=== PATIENT | male | born 1965 | race Two or more races ===

== ENCOUNTER 2024-08-30 08:02 | Emergency (ER) | payer OTHER ==
[~2024-08-30] VITALS: Ht 177.8 cm; Wt 70.8 kg
[2024-08-30] MEDS ORDERED: FENOFIBRATE150 MG PO (08:20)
[2024-08-30] MEDS ORDERED: CRESTOR40 MG PO (08:21)
[2024-08-30] MEDS ORDERED: KETOROLAC TROMETHAMINE 60 MG VIAL IM ONE ×2 (08:45→08:52)
[2024-08-30] MEDS ORDERED: ORPHENADRINE CITRATE 100 MG TABLET PO ONE (08:45)
[2024-08-30] MEDS ORDERED: DEXAMETHASONE SODIUM PHOSPHATE 4 MG/ML VIAL IM ONE (08:45)
[2024-08-30] MEDS ORDERED: DEXAMETHASONE SODIUM PHOSPHATE 4 MG/ML VIAL ONE (08:52)
[2024-08-30 09:36] LABS: HEMATOCRIT 41.5 % (39.0-48.0); HEMOGLOBIN 14.1 g/dL (13-16.00); MEAN CELL VOLUME 89.9 fL (80.0-100.00); MEAN CORPUSCULAR HEMOGLOBIN 30.5 pg (27.00-32.0); PLATELET COUNT 242 K/uL (150-450); RED BLOOD COUNT 4.62 M/uL (4.00-6.00); RED CELL DISTRIBUTION WIDTH 13.4 % (11.5-14.5)
[2024-08-30 11:33] LABS: PH,URINE 6.5 (5.0-8.0); URINE APPEARANCE Clear; URINE BILIRRUBIN Negative (NEGATIVE); URINE BLOOD Negative; URINE COLOR Yellow; URINE GLUCOSE Negative (NEGATIVE); URINE KETONE Negative (NEGATIVE); URINE LEUKOCYTE Negative; URINE NITRATE Negative; URINE PROTEIN Negative (NEGATIVE); URINE UROBILINOGEN 0.2 E.U./dl
[2024-08-30 11:37] LABS: URINE BACTERIA 9.7 uL (0.0-1933); URINE RBC 3.3 uL (0.0-20.8); URINE WBC 4.1 uL (0.0-23.2)
[2024-08-30 11:53] LABS: URINE CAST 0.14 uL (0.0-1.40)
[2024-08-30] MEDS ORDERED: DICLOFENAC SODI75 MG PO (12:11)
[2024-08-30] MEDS ORDERED: BACLOFEN10 MG PO (12:11)
== END 2024-08-30 14:22 | disposition home or self-care (01) ==
LOC: ER 08:05
PROVIDERS: Preventive Medicine Public Health & General Preventive Medicine
DX: M54.50 Low back pain, unspecified (principal)